=== PATIENT | female | born 2000 | race Caucasian/White ===

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

== ENCOUNTER 2022-09-01 15:33 | Emergency (ER) | payer MEDICAID, OTHER ==
[~2022-09-01] VITALS: Ht 170 cm; Wt 60.0 kg
[2022-09-01 16:01] LABS: CLARITY,URINE SL CLOUDY; COLOR,URINE YELLOW; GLUCOSE, URINE (UA) NEGATIVE (NEGATIVE); KETONES,URINE 3+ (NEGATIVE); LEUKOCYTE ESTERASE ,URINE NEGATIVE (NEGATIVE); NITRITE,URINE NEGATIVE (NEGATIVE); PROTEIN,URINE TRACE (NEGATIVE)
--- NOTE | 2022-09-01 16:04 | ED Back Pain ---
General Chief Complaint: Back Problems Stated Complaint: BACK PAIN Nursing Triage Note: PT AMB TO RM 5 PT CO OF MEDIAL BACK PAIN / THAT GOES INTO STOMACH AT TIMES, STATES MAKES NAUSEATED AND DIZZY AT TIMES Source of Information: Patient Exam Limitations: No Limitations History of Present Illness Date Seen by Provider: Sep 01, 2022 Time Seen by Provider: 16:02 Initial Comments Patient is a 22-year-old female presents ED with bilateral flank pain. Pain started yesterday evening. Described as sharp and bilateral. Pain has stayed the same is about 6 out of 10. Pain radiates to right upper quadrant. She took Tylenol last night without much improvement. [place] nauseous today. She states that she had a near syncopal episode around 10:00 this morning. EMS was contacted at work. She works at [employer]. She felt much better went home went to sleep and continue having pain. She reports frequent urination and dark urine. She states she has been drinking plenty water. No pain with urination. No history of previous abdominal surgery. She has eaten this morning without increasing pain. She states she did have some chills earlier but that improved. Denies of any known fever. Denies vomiting, diarrhea, chest pain cough, shortness of breath, drug use. She states she has a history of near syncopal episodes in the past. She believes today she passed out for a few seconds. This was witnessed. She states she was lightheaded and dizzy at the time. Denies headache, dizziness currently, visual changes, unilateral muscle weakness or sensory changes, vaginal bleeding, vaginal discharge. Last menstrual cycle 2 weeks ago. Allergies and Home Medications Allergies Coded Allergies: No Known Drug Allergies (Unverified , 10/16/20) Patient Home Medication List Home Medication List Reviewed: Yes Review of Systems Constitutional: No chills, No diaphoresis EENTM: No ear pain, No blurred vision, No double vision Respiratory: No cough, No dyspnea on exertion Cardiovascular: No chest pain Gastrointestinal: abdominal pain; No diarrhea; nausea; No vomiting Genitourinary: No decreased output Musculoskeletal: back pain; No joint pain, No joint swelling, No muscle pain Skin: No change in color, No change in hair/nails All Other Systems Reviewed Negative Unless Noted: Yes Past Gpmwwdp-Jttogg-Ozzwxv Hx Patient Social History Tobacco Use?: No Use of E-Cig and/or Vaping dev: Yes E-Cig or Vaping type used: Nicotine Use of E-Cig and/or Vaping Miles: Current Everyday User Substance use?: Yes Substance type: Marijuana Substance frequency: Once in a while Alcohol Use?: Yes Alcohol Frequency: Once in a while Pt feels they are or have been: No Past Medical History Surgery/Hospitalization HX: WISDOM TEETH, T AND A Surgeries: No Respiratory: No Cardiac: No Neurological: Yes Seizure Disorder Genitourinary: No Gastrointestinal: No Musculoskeletal: No Endocrine: No HEENT: No Cancer: No Psychosocial: No Integumentary: No Blood Disorders: No Physical Exam Vital Signs Vital Signs - First Documented 09/01/22 15:45 Temp 37.0 Pulse 105 Resp 18 B/P (MAP) 135/90 (105) Pulse Ox 99 Capillary Refill : Less Than 3 Seconds Height, Weight, BMI Height: '" Weight: lbs. oz. kg; 20.00 BMI Method: General Appearance: No Apparent Distress, WD/WN HEENT: PERRL/EOMI, TMs Normal, Normal ENT Inspection, Pharynx Normal Neck: Full Range of Motion, Normal Inspection, Non Tender, Supple Cardiovascular: Regular Rate, Rhythm, No Edema, No Gallop, No JVD Respiratory: Chest Non Tender, Lungs Clear, Normal Breath Sounds, No Accessory Muscle Use, No Respiratory Distress Gastrointestinal: Normal Bowel Sounds, No Organomegaly, No Pulsatile Mass, Non Tender, Soft Back: Normal Inspection, No CVA Tenderness, No Vertebral Tenderness Extremity: Normal Capillary Refill, Normal Inspection, Normal Range of Motion, Non Tender Neurologic/Psychiatric: Alert, Oriented x3, No Motor/Sensory Deficits, Normal Mood/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, 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 Norm as Tested Skin: Normal Color, Warm/Dry Progress/Results/Core Measures Results/Orders Lab Results Laboratory Tests Test 09/01/22 15:55 09/01/22 16:14 Range/Units Urine Color YELLOW Urine Clarity SL CLOUDY Urine pH 6.0 5-9 Urine Specific [place] >=1.030 1.016-1.022 Urine Protein TRACE H NEGATIVE Urine Glucose (UA) NEGATIVE NEGATIVE Urine Ketones 3+ H NEGATIVE Urine Nitrite NEGATIVE NEGATIVE Urine Bilirubin 1+ H NEGATIVE Urine Urobilinogen 1.0 < = 1.0 MG/DL Urine Leukocyte Esterase NEGATIVE NEGATIVE Urine RBC (Auto) NEGATIVE NEGATIVE Urine RBC 0-2 /HPF Urine WBC 0-2 /HPF Urine Squamous Epithelial Cells 0-2 /HPF Urine Crystals NONE /LPF Urine Bacteria FEW H /HPF Urine Casts NONE /LPF Urine Mucus NEGATIVE /LPF Urine Culture Indicated NO Urine Test NEGATIVE NEGATIVE White Blood Count 3.9 L 4.3-11.0 10^3/uL Red Blood Count 5.09 3.80-5.11 10^6/uL Hemoglobin 14.6 11.5-16.0 g/dL Hematocrit 44 35-52 % Mean Corpuscular Volume 86 80-99 fL Mean Corpuscular Hemoglobin 29 25-34 pg Mean Corpuscular Hemoglobin Concent 33 32-36 g/dL Red Cell Distribution Width 11.8 10.0-14.5 % Platelet Count 165 130-400 10^3/uL Mean Platelet Volume 10.6 9.0-12.2 fL Immature Granulocyte % (Auto) 0 % Neutrophils (%) (Auto) 76 H 42-75 % Lymphocytes (%) (Auto) 16 12-44 % Monocytes (%) (Auto) 8 0-12 % Eosinophils (%) (Auto) 0 0-10 % Basophils (%) (Auto) 0 0-10 % Neutrophils # (Auto) 3.0 1.8-7.8 10^3/uL Lymphocytes # (Auto) 0.6 L 1.0-4.0 10^3/uL Monocytes # (Auto) 0.3 0.0-1.0 10^3/uL Eosinophils # (Auto) 0.0 0.0-0.3 10^3/uL Basophils # (Auto) 0.0 0.0-0.1 10^3/uL Immature Granulocyte # (Auto) 0.0 0.0-0.1 10^3/uL Sodium Level 137 135-145 MMOL/L Potassium Level 3.1 L 3.6-5.0 MMOL/L Chloride Level 103 98-107 MMOL/L Carbon Dioxide Level 19 L 21-32 MMOL/L Anion Gap 15 H 5-14 MMOL/L Blood Urea Nitrogen 10 7-18 MG/DL Creatinine 0.81 0.60-1.30 MG/DL Estimat Glomerular Filtration Rate 107 BUN/Creatinine Ratio 12 Glucose Level 127 H 70-105 MG/DL Calcium Level 9.5 8.5-10.1 MG/DL Corrected Calcium 9.2 8.5-10.1 MG/DL Total Bilirubin 1.2 H 0.1-1.0 MG/DL Aspartate Amino Transf (AST/SGOT) 15 5-34 U/L Alanine Aminotransferase (ALT/SGPT) 10 0-55 U/L Alkaline Phosphatase 57 40-136 U/L Total Protein 7.0 6.4-8.2 GM/DL Albumin 4.4 3.2-4.5 GM/DL Lipase < 4 L 8-78 U/L My Orders Orders - ELVA RUSS Ua Culture If Indicated (09/01/22 15:41) Hcg,Qualitative Urine (09/01/22 15:41) Cbc With Automated Diff (09/01/22 16:00) Comprehensive Metabolic Panel (09/01/22 16:00) Lipase (09/01/22 16:00) Ketorolac Injection (Toradol Injection) (09/01/22 16:15) Potassium Chloride (Tablet) (K Dur Table (09/01/22 17:15) Medications Given in ED Current Medications Medications Dose Ordered Sig/Cristal Route Start Time Stop Time Status Last Admin Dose Admin Ketorolac Tromethamine 30 mg ONCE ONCE IM 09/01/22 16:15 09/01/22 16:16 DC 09/01/22 16:25 30 MG Vital Signs/I&O 09/01/22 15:45 Temp 37.0 Pulse 105 Resp 18 B/P (MAP) 135/90 (105) Pulse Ox 99 Blood Pressure Mean: 105 Departure Communication (PCP) Reviewed previous ER visits, H&P, lab testing. Differential diagnosis, nephrolithiasis, pyelonephritis, UTI, kidney injury, muscular strain. Patient is a 22-year-old female with a history of seizures who presents ED with bilateral flank pain. Pain started yesterday. Rates pain 6 out of 10. She had some pain to her right upper quadrant today. Nausea dizziness. Potential near syncopal episode today. No seizure-like activity. States she has been staying well-hydrated. Frequent urination without pain. No vaginal discharge or vaginal bleeding. On exam she has no abdominal tenderness. No specific flank tenderness, thoracic or lumbar midline tenderness. She is afebrile. No drug use. No bowel or urine incontinence or saddle paresthesia. CBC, CMP, urinalysis with test, lipase was ordered. CBC showed white blood count of 3.9. Chemistry showed potassium 3.1. Normal kidney function, liver function and pancreatic function. Urinalysis positive for ketones and protein without evidence of red blood cells or leukocytes rule out pyelonephritis versus nephrolithiasis. She received Toradol with improvement of pain. Oral potassium 20 mill equivalent. She states she has been drinking fluids. Denies of any specific injury. Due to reassuring urinalysis and reassuring lab work imaging was held. She states she is currently pain-free after Toradol. She took Tylenol last night. Discussed recommend staying hydrated. Continue drinking electrolytes. Recommend Tylenol and ibuprofen at home. If pain gets worse, vomiting, difficulty eating, change in urination to return back to ED. She states she had a near syncopal episode today. This is very common. There was no evidence of seizure-like activity. She has no neurological deficits. She is currently on seizure medication which she cannot recall the name. She states she did stop her seizure medication for 1 week but started yesterday at a higher dose which she was concerned that this may be associated to the pain. Recommend continue with the dose that was recommended by your neurologist that she states her seizures has been well controlled. Impression Primary Impression: Back pain Disposition: 01 HOME, SELF-CARE Condition: Stable Departure-Patient Inst. Decision time for Depature: 17:14 [facility] [place],LOCAL PHYSICIAN (PCP) Primary Care Physician Patient Instructions: Upper Back Pain (DC) Add. Discharge Instructions: If continued pain, fever, vomiting, weakness to return back to ED. Tylenol ibuprofen for pain. Recommend staying hydrated with electrolytes. Follow-up with your PCP in 2 to 3 days for reevaluation. All discharge instructions reviewed with patient and/or family. Voiced understanding. Work/School Note: Work Release Form Date Seen in the Emergency Department: Sep 01, 2022 Return to Work: Sep 03, 2022 ELVA RUSS Sep 01, 2022 16:04
[2022-09-01] MEDS ORDERED: KETOROLAC 30 MG/ML VIAL IM ONE (16:15)
[2022-09-01 16:17] LABS: BILIRUBIN,URINE 1+ (NEGATIVE)
[2022-09-01 16:18] LABS: BACTERIA,URINE FEW /HPF; RBC,URINE 0-2 /HPF; SQUAMOUS EPITHELIAL CELL,UR 0-2 /HPF; WBC,URINE 0-2 /HPF
[2022-09-01 16:20] LABS: BASOPHILS % (AUTO) 0 % (0-10); EOSINOPHILS % (AUTO) 0 % (0-10); HEMATOCRIT 44 % (35-52); HEMOGLOBIN 14.6 g/dL (11.5-16.0); LYMPHOCYTES # (AUTO) 0.6 10^3/uL (1.0-4.0); LYMPHOCYTES % (AUTO) 16 % (12-44); MEAN CORPUSCULAR HEMOGLOBIN 29 pg (25-34); MEAN CORPUSCULAR HGB CONC 33 g/dL (32-36); MEAN CORPUSCULAR VOLUME 86 fL (80-99); MEAN PLATELET VOLUME 10.6 fL (9.0-12.2); MONOCYTES # (AUTO) 0.3 10^3/uL (0.0-1.0); MONOCYTES % (AUTO) 8 % (0-12); NEUTROPHILS % (AUTO) 76 % (42-75); PLATELET COUNT 165 10^3/uL (130-400); WHITE BLOOD COUNT 3.9 10^3/uL (4.3-11.0)
[2022-09-01 16:38] LABS: ALBUMIN 4.4 GM/DL (3.2-4.5); CHLORIDE 103 MMOL/L (98-107); POTASSIUM 3.1 MMOL/L (3.6-5.0); SODIUM 137 MMOL/L (135-145)
[2022-09-01 16:40] LABS: CALCIUM 9.5 MG/DL (8.5-10.1)
[2022-09-01 16:41] LABS: GLUCOSE 127 MG/DL (70-105)
[2022-09-01 16:42] LABS: CARBON DIOXIDE 19 MMOL/L (21-32)
[2022-09-01 16:43] LABS: BILIRUBIN,TOTAL 1.2 MG/DL (0.1-1.0)
[2022-09-01 16:44] LABS: ALKALINE PHOSPHATASE 57 U/L (40-136)
[2022-09-01 16:45] LABS: CREATININE SERUM 0.81 MG/DL (0.60-1.30); GFR ESTIMATED 107
[2022-09-01 16:46] LABS: BUN/CREATININE RATIO 12
[2022-09-01 16:47] LABS: ALANINE AMINOTRANSFERASE 10 U/L (0-55)
[2022-09-01 16:48] LABS: LIPASE < 4 U/L (8-78)
[2022-09-01] MEDS ORDERED: KCL 20 MEQ TAB (K-DUR) PO ONE (17:15)
[2022-09-01 17:19] VITALS: BP 135/90
== END 2022-09-01 17:19 | disposition home or self-care (01) ==
LOC: EDUNIT# 15:33 → ER 15:36
DX: M54.6 Pain in thoracic spine (principal); G40.909 Epilepsy, unspecified, not intractable, without status epilepticus; F17.290 Nicotine dependence, other tobacco product, uncomplicated; Z79.899 Other long term (current) drug therapy
CPT/HCPCS: 36415; 80053; 81000; 83690; 84703; 85025

== ENCOUNTER 2022-12-04 10:51 | Emergency (ER) | payer OTHER, MEDICAID ==
--- NOTE | 2022-12-04 11:19 | ED Neurological Problem ---
General Chief Complaint: Neurological Problems Stated Complaint: DIZZINESS | BLURRY VISION | HX OF SEIZURES Nursing Triage Note: PT TO RM 7 BY WC FROM WORK WITH C/O ERNIE, UNWITNESSED. PT DENIES HITTING HEAD OR INJURY Source: patient Exam Limitations: no limitations History of Present Illness Date Seen by Provider: Dec 04, 2022 Time Seen by Provider: 11:08 Initial Comments 22-year-old female presents emergency department today for seizure activity this morning. She states she has a history of TBI and seizure disorder, takes Lamictal twice daily. She got her nighttime dose last night and had a seizure this morning. She states typically does not have seizures unless she gets overly tired or misses medications. No recent illnesses to include fevers chills. She had no chest pain or shortness of breath, abdominal pain. She still feels a little "out of it" and has a headache. Otherwise she feels relatively normal. She denies a chance that she can be Systems reviewed and negative except for HPI Voice recognition software was used to help create this Allergies and Home Medications Allergies Coded Allergies: No Known Drug Allergies (Unverified , 10/16/20) Patient Home Medication List Home Medication List Reviewed: Yes Review of Systems Review of Systems Constitutional: see HPI Past Xaietrw-Szmixj-Mzwttb Hx Patient Social History Tobacco Use?: No Use of E-Cig and/or Vaping dev: Yes E-Cig or Vaping type used: Nicotine Substance use?: Yes Substance type: Marijuana Alcohol Use?: Yes Alcohol Frequency: Once in a while Pt feels they are or have been: No Immunizations Up To Date Influenza Vaccine Up-to-Date: No; Not Current Past Medical History Surgery/Hospitalization HX: WISDOM TEETH, T AND A SEIZURES, TBI Surgeries: No Respiratory: No Cardiac: No Neurological: Yes Seizure Disorder Genitourinary: No Gastrointestinal: No Musculoskeletal: No Endocrine: No HEENT: No Cancer: No Psychosocial: No Integumentary: No Blood Disorders: No Physical Exam Vital Signs Vital Signs - First Documented 12/04/22 10:54 Temp 36.2 Pulse 59 Resp 14 B/P (MAP) 136/84 (101) Pulse Ox 100 O2 Delivery Room Air Capillary Refill : Height, Weight, BMI Height: '" Weight: lbs. oz. 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 nml as tested, no motor/sensory deficits, alert, normal mood/affect, oriented x 3 Motor/Sensory: no motor deficit, no sensory deficit, no pronator drift Skin: normal color, warm/dry Progress/Results/Core Measures Results/Orders Lab Results Laboratory Tests Test 12/04/22 11:19 Range/Units Glucometer 110 70-110 MG/DL My Orders Orders - PENNIEALEXANDER DO Accucheck Stat ONCE (12/04/22 11:13) Ekg Tracing (12/04/22 11:13) Ibuprofen Tablet (Ibuprofen Tablet) (12/04/22 11:30) Medications Given in ED Current Medications Medications Dose Ordered Sig/Cristal Route Start Time Stop Time Status Last Admin Dose Admin Ibuprofen 600 mg ONCE ONCE PO 12/04/22 11:30 12/04/22 11:31 DC 12/04/22 11:24 600 MG Vital Signs/I&O 12/04/22 10:54 Temp 36.2 Pulse 59 Resp 14 B/P (MAP) 136/84 (101) Pulse Ox 100 O2 Delivery Room Air Blood Pressure Mean: 101 Comment Sinus rhythm with a rate of 53 bpm. Normal intervals. Normal axis. No ST or T wave abnormalities. No ectopy. No STEMI Departure Communication (Admissions) Is hemodynamically stable and back to normal mental baseline per her report. She has no focal exam findings and vital signs are stable. She does have a history of a seizure disorder and missed her Lamictal last night. She states that after missing medications it is not uncommon for her to have a seizure and this is most likely the case today she has had no recent illnesses or head trauma. No medication changes. She has been stable on the current dose of Lamictal for some time and states that she is compliant with her medication she typically does not have seizures unless she gets overtly tired. That only minimal work-up is required at this time. No indication for imaging. Check her blood sugar to rule out hypoglycemia as a cause which was normal. No indication for any other lab testing at this time. Also did an EKG to rule out dysrhythmia as a cause for potential seizures and this is negative as well with that she be discharged home in stable condition with close follow-up. Impression Primary Impression: Seizure Disposition: HOME, SELF-CARE Condition: Stable Departure-Patient Inst. Referrals: NO,LOCAL PHYSICIAN (PCP/Family) Primary Care Physician Patient Instructions: Seizures, Adult ED Add. Discharge Instructions: Continue all seizure medication as previously prescribed. Follow-up with your primary doctor, neurologist as needed. Increase your fluids and rest. Return to the emergency department for any severe concerns All discharge instructions reviewed with patient and/or family. Voiced understanding. ALEXANDER CASPER DO Dec 04, 2022 11:19
[2022-12-04] MEDS ORDERED: IBUPROFEN 600 MG TABLET PO ONE (11:30)
[2022-12-04 12:02] VITALS: BP 116/78
== END 2022-12-04 12:03 | disposition home or self-care (01) ==
LOC: EDUNIT# 10:51 → ER 10:53
DX: G40.909 Epilepsy, unspecified, not intractable, without status epilepticus (principal); F17.290 Nicotine dependence, other tobacco product, uncomplicated; Z79.899 Other long term (current) drug therapy
CPT/HCPCS: 82947; 93005

== ENCOUNTER 2022-12-18 20:40 | Emergency (ER) | payer OTHER, MEDICAID ==
[2022-12-18] MEDS ORDERED: ACETAMINOPHEN 325 MG TABLET PO ONE (21:00)
[2022-12-18] MEDS ORDERED: lamoTRIgine 100 MG TABLET PO ONE (21:00)
--- NOTE | 2022-12-18 21:09 | ED Neurological Problem ---
General Chief Complaint: Neurological Problems Stated Complaint: SEIZURE Source: patient, EMS Exam Limitations: no limitations History of Present Illness Date Seen by Provider: Dec 18, 2022 Time Seen by Provider: 20:43 Initial Comments Here by EMS with report of 2 seizures tonight. EMS reports normal vital signs and no seizures in route. They did do 4-lead EKG which was normal. Patient transported here without difficulty. Patient is alert and oriented and awake currently and was for EMS as well. Patient reports that she does have history of seizure disorder and takes Lamictal twice daily. She missed her morning dose and sometimes will have breakthrough seizures with that. She was seen a couple weeks ago for the same. She was due to see her neurologist last week but could not get there because she could not drive. She apparently had a seizure at work tonight and EMS was summoned and got there and checked her out she was doing okay and patient just wanted to go home to take her medicine. When she was walking up her stairs at home, she had another seizure but was with a friend who assisted her to the ground. No injuries noted or reported from that incident. She is currently in normal state and states that she feels well other than a slight headache which is less than typically after she has a seizure. Denies any recent illness or other medication changes or outside medication use or drug use of significance. No recent injury. She just wanted to get checked out for the 2 seizures tonight. Timing/Duration: 1 hour, episodic Severity: moderate Associated Symptoms: No confusion, No fever/chills, No nausea/vomiting; seizures; No weakness Allergies and Home Medications Allergies Coded Allergies: No Known Drug Allergies (Unverified , 10/16/20) Patient Home Medication List Home Medication List Reviewed: Yes Review of Systems Review of Systems Constitutional: see HPI; No chills, No fever Eyes: No Symptoms Reported Ears, Nose, Mouth, Throat: no symptoms reported Respiratory: No cough, No short of breath Cardiovascular: no symptoms reported Gastrointestinal: No nausea, No vomiting Musculoskeletal: no symptoms reported Skin: no symptoms reported Psychiatric/Neurological: See HPI, Headache, Tonic Clonic Seizures Past Cnxcvyf-Hkuvvs-Rpapmo Hx Patient Social History Tobacco Use?: No Substance use?: Yes Substance type: Marijuana Substance frequency: Once in a while Past Medical History Surgery/Hospitalization HX: WISDOM TEETH, T AND A SEIZURES, TBI Surgeries: No Respiratory: No Cardiac: No Neurological: Yes Seizure Disorder Genitourinary: No Gastrointestinal: No Musculoskeletal: No Endocrine: No HEENT: No Cancer: No Psychosocial: No Integumentary: No Blood Disorders: No Family Medical History Reviewed Nursing Family Hx No Pertinent Family Hx Physical Exam Vital Signs Vital Signs - First Documented 12/18/22 20:41 Temp 37.0 Pulse 53 Resp 16 B/P (MAP) 122/80 (94) Pulse Ox 100 O2 Delivery Room Air Capillary Refill : Height, Weight, BMI Height: '" Weight: lbs. oz. kg; 20.00 BMI Method: General Appearance: WD/WN, no apparent distress HEENT: PERRL/EOMI, TMs normal, pharynx normal Neck: full range of motion, supple Respiratory: lungs clear, normal breath sounds Cardiovascular: regular rate, rhythm, no murmur Gastrointestinal: non tender, soft Back: normal inspection, no CVA tenderness, no vertebral tenderness Neurologic/Psychiatric: alert, oriented x 3 Crainal Nerves: normal hearing, normal speech, PERRL Coordination/Gait: normal gait Motor/Sensory: no motor deficit Skin: normal color, warm/dry Progress/Results/Core Measures Results/Orders My Orders Orders - CHAD NIETO MD Lamotrigine Tablet (Lamotrigine Tablet) (12/18/22 21:00) Acetaminophen Tablet (Acetaminophen Ta (12/18/22 21:00) Medications Given in ED Current Medications Medications Dose Ordered Sig/Cristal Route Start Time Stop Time Status Last Admin Dose Admin Acetaminophen 650 mg ONCE ONCE PO 12/18/22 21:00 12/18/22 21:01 DC 12/18/22 21:05 650 MG Lamotrigine 100 mg ONCE ONCE PO 12/18/22 21:00 12/18/22 21:01 DC 12/18/22 21:04 100 MG Vital Signs/I&O 12/18/22 20:41 Temp 37.0 Pulse 53 Resp 16 B/P (MAP) 122/80 (94) Pulse Ox 100 O2 Delivery Room Air Progress Progress Note : Progress Note Seen and evaluated. We did discuss options for evaluation. She has IV established but I do not believe there is an indication for labs or CT scan of the head at this point and this was discussed with the patient and she agrees. Ultimately we decided that we will give her a dose of Lamictal 100 mg p.o. now as well as Tylenol 650 mg p.o. now and watch her. If she is got no return of seizures and I believe that she can safely discharged home and she will call her neurologist. We did discuss the importance of not missing any doses of her seizure medicine and she reports understanding and agreement. Overall she feels well now and knows that she has a seizure disorder and believes that this is her typical seizure disorder and she just missed her dose. We will continue to monitor. Monitor patient. 2210: Patient overall doing much better and no return of seizures. She tolerated meds well. She has been to the bathroom twice walking on her own without difficulty and without dizziness. She states that she is a little achy but typical after her seizures and not worse than normal and actually less than normal. I did readdress talking with her neurologist with her and the importance of taking her medicines. She verbalized understanding. Discharged home with return precautions. Patient verbalized understanding of instructions and agreement with plan. Departure Impression Primary Impression: Seizure Disposition: 01 HOME, SELF-CARE Condition: Improved Departure-Patient Inst. Decision time for Depature: 22:11 Referrals: NO,LOCAL PHYSICIAN (PCP/Family) Primary Care Physician Patient Instructions: Seizures, Adult (DC) Add. Discharge Instructions: All discharge instructions reviewed with patient and/or family. Voiced understanding. Take medications as directed. Call your neurologist for appointment and discuss telehealth appointment with them as this may be easier for you since she cannot drive. Also let them know that you are having breakthrough seizures. They may need to adjust her medications. Return for worse pain, fever, vomiting, weakness, breathing problems or other concerns as needed. Do not drive or perform activities that increase your risk of harm if you were to have seizures such as taking a bath by yourself or climbing to heights or other activities. CHAD NIETO MD Dec 18, 2022 21:09
[2022-12-18 22:13] VITALS: BP 122/78
== END 2022-12-18 22:15 | disposition home or self-care (01) ==
LOC: EDUNIT# 20:40 → ER 20:41
DX: G40.909 Epilepsy, unspecified, not intractable, without status epilepticus (principal); Z79.899 Other long term (current) drug therapy